=== PATIENT | male | born 1955 | race Caucasian/White ===

== ENCOUNTER 2017-08-04 10:27 | Inpatient (IN) | payer OTHER ==
[~2017-08-04] VITALS: Ht 177.8 cm; Wt 68.9 kg
[2017-08-04 11:54] LABS: ABSOLUTE BASOPHIL COUNT 0 /CUMM (0.0-0.2); ABSOLUTE EOSINOPHIL COUNT 0.1 /CUMM (0.0-0.7); ABSOLUTE GRANULOCYTE CT 5.1 /CUMM (1.4-6.5); ABSOLUTE MONOCYTE COUNT 0.7 /CUMM (0.10-0.60); BASOPHIL % 0.4 % (0.0-2.0); EOSINOPHIL % 0.7 % (0-5); GRANULOCYTE % 74.9 % (42.2-75.2); HEMATOCRIT 42.2 % (42-52); MEAN CORPUSCULAR HGB 29.4 PG (27.0-31.0); MEAN CORPUSCULAR VOLUME 89.2 FL (80.0-94.0); MEAN PLATELET VOLUME 8.6 FL (7.4-10.4); PLATELET COUNT 367 /CUMM (130-400); RBC DISTRIBUTION WIDTH 13.8 % (11.5-14.5); RED BLOOD CELL CT 4.73 /CUMM (4.70-6.10); WHITE BLOOD CELL COUNT 6.9 /CUMM (4.8-10.8)
[2017-08-04] MEDS ORDERED: LEVOTHYROXINE75 MCG PO (12:06)
[2017-08-04] MEDS ORDERED: LISINOPRIL20 M1 PO (12:06)
[2017-08-04] MEDS ORDERED: PRAVASTATIN SOD40 M2 PO (12:06)
[2017-08-04] MEDS ORDERED: ASPIRIN81 M4 PO (12:07)
--- NOTE | 2017-08-04 12:16 | ED GI/GU/ABDOMINAL COMPLAINT ---
History of Present Illness General Chief Complaint: Abdominal Pain/Flank Pain Stated Complaint: ABD PAIN Source: patient Exam Limitations: no limitations Vital Signs & Intake/Output Vital Signs & Intake/Output Vital Signs Date Time Temp Pulse Resp B/P B/P Pulse O2 O2 Flow FiO2 Mean Ox Delivery Rate 08/04 1431 99.1 72 20 119/60 97 Room Air 08/04 1329 99.0 76 20 125/86 99 Room Air 08/04 1054 96.0 94 18 118/79 96 Room Air Room Air Allergies Coded Allergies: No Known Allergies (08/04/17) Reconcile Medications Aspirin (Aspirin*) 81 MG TAB.CHEW 1 TAB PO DAILY HEART HEALTH (Reported) Levothyroxine Sodium 75 MCG TABLET 1 TAB PO DAILY AC THYROID (Reported) Lisinopril 20 MG TABLET 1 TAB PO DAILY HEART (Reported) Pravastatin Sodium 40 MG TABLET 1 TAB PO DAILY CHOLESTEROL (Reported) Triage Note: PT TO ED WITH LOW ABD PAIN, PT HAD RECENT JAW SURGERY FROM IMPACTED WISDOM TOOTH THAT WAS ABCESSED, WAS ON LIQUID DIET FOR 2 WEEKS, TAKING SOFT DIET FOR THE LAST 2-3 DAYS. PT DENIES DIARRHEA OR URINARY DIFFICULTIES "SEEMS TO GET WORSE WHEN I EAT". LAST NORMAL BM YESTERDAY. Triage Nurses Notes Reviewed? yes Onset: Gradual Duration: day(s): (4) Timing: recent history Quality/Severity: cramping, sharpness Location: left upper quadrant, right lower quadrant, suprapubic Radiation: no radiation Activities at Onset: none Prior Abdominal Problems: similar symptoms Past Sexual History: Unobtainable at this time Sexually Active: No HPI: Patient is a 61-year-old male with recent dental surgery done approximately 5 weeks ago presenting to the emergency department to complaint of lower abdominal pain has been worsening since this morning. Last bowel movement was yesterday and soft. He's been on a soft diet for the past several days secondary to his recent jaw surgery. Tactile fevers and chills. Denies any urinary frequency urgency or dysuria. No blood in the stool. Positive nausea but no vomiting. Unable to eat or drink anything. No history of similar symptoms. Remote history of bilateral inguinal hernia repair. No sick contacts or recent travel. Patient reports that he was on 2 courses of amoxicillin for the jaw surgery within the past 5 weeks. (Cristiano JAUREGUI,Bibiana) Past History Travel History Traveled to [place] past 21 day No Medical History Any Pertinent Medical History? 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 No (Bibiana Jiménez) Review of Systems Review of Systems Constitutional: Reports: see HPI, fever. Comments Review of systems: See HPI, All other systems negative. Constitutional, no weight loss HEENT: No visual changes no sore throat no congestion Cardiovascular: No chest pain ,palpitation , orthopnea or ankle swelling Skin, no jaundice no rashes Respiratory: No dyspnea cough sputum or hemoptysis GI: no vomiting : No dysuria No hematuria Muscle skeletal: no back pain, no neck pain, Neurologic: No numbness no confusion NO HEADACHES Psych: No stress anxiety or depression,. Heme/endocrine: No bruising no bleeding no polyuria or polydipsia Immunology: No splenectomy or history of AIDS (Bibiana Jiménez) Physical Exam Physical Exam General Appearance: well developed/nourished, no apparent distress, alert, awake , comfortable Gastrointestinal: tenderness Comments: Well-developed well-nourished person in mild distress HEENT: Pupils equally round and reactive to light and accommodation. Nose is atraumatic. Pharynx normal. No swelling or edema. Moist oral mucosa. Dry lips. Neck: Supple, no lymphadenopathy Back: Nontender, no CVA tenderness. Cardiovascular: Regular rate and rhythms Respiratory: No respiratory distress.breath sounds clear to auscultation bilaterally Abdomen: Mildly distended, diffusely tender with rebound and guarding. no appreciable organomegaly. Slightly hypoactive bowel sounds. No ascites Extremity: No edema Neuro: Alert oriented x3 Skin: No appreciable rash on exposed skin, skin is warm and dry. Psych: Mood and affect is normal, memory and judgment is normal. Core Measures ACS in differential dx? No Sepsis Present: No Sepsis Focused Exam Completed? No (Bibiana Jiménez) Progress Differential Diagnosis: appendicitis, bowel obstruction, colon cancer, diverticulitis, gastritis, SBO, PERFORATED VISCUS, INTUSSUSCEPTION, INTERNAL HERNIA. Plan of Care: Orders Procedure Date/time Status Admit to inpatient 08/04 1837 Active Add-on Test (ER Only) 08/04 1409 Active Add-on Test (ER Only) 08/04 1349 Active PARTIAL THROMBOPLASTIN TIME 08/04 1140 Complete PROTHROMBIN TIME 08/04 1140 Complete LACTIC ACID 08/04 1140 Complete URINALYSIS 08/04 1114 Complete LIPASE 08/04 1114 Complete COMPREHENSIVE METABOLIC PANEL 08/04 1114 Complete CBC WITHOUT DIFFERENTIAL 08/04 1114 Complete Current Medications Sig/Augustine Start time Last Medication Dose Stop Time Status Admin Morphine Sulfate 6 MG ONCE ONE 08/04 1844 UNVr (Morphine) 08/04 184 Laboratory Tests 08/04/17 1316: Urine Color YEL, Urine Clarity CLEAR, Urine pH 7.0, Ur Specific [place] <= 1.005 , Urine Protein NEG, Urine Ketones 40 H, Urine Nitrite NEG, Urine Bilirubin NEG @ICTO, Urine Urobilinogen 1.0, Ur Leukocyte Esterase NEG, Ur Microscopic EXAM NOT REQUIRED, Urine Hemoglobin NEG, Urine Glucose NEG 08/04/17 1140: Anion Gap 14, Estimated GFR > 60, BUN/Creatinine Ratio 21.7, Glucose 99, Lactic Acid 0.8, Calcium 8.9, Total Bilirubin 0.9, AST 14 L, ALT 22, Alkaline Phosphatase 75, Total Protein 6.1 L, Albumin 3.7, Globulin 2.4, Albumin/ Globulin Ratio 1.5, Lipase 12 L, PT 11.3, INR 1.04, APTT 32, CBC w Diff NO MAN DIFF REQ, RBC 4.73, MCV 89.2, MCH 29.4, MCHC 33.0, RDW 13.8, MPV 8.6, Gran % 74.9, Lymphocytes % 14.1 L, Monocytes % 9.9 H, Eosinophils % 0.7, Basophils % 0.4, Absolute Granulocytes 5.1, Absolute Lymphocytes 1.0 L, Absolute Monocytes 0.7 H, Absolute Eosinophils 0.1, Absolute Basophils 0 08/04/2017 5:16:36 PM awaiting evaluation from Dr. Penaloza as patient been seen by surgical physician addictions counselor assistant as well. Patient medicated with IV Tylenol this time. Resting comfortably. 08/04/2017 6:13:[address] Penaloza, recommending patient be admitted under his service, for admission for bowel rest, IV hydration, GI consultation, potential endoscopy versus colonoscopy. If symptoms worsen patient may need to go to the operating room for evaluation. Discussed with Dr. Salinas and he agrees to plan. Diagnostic Imaging: Viewed by Me: CT Scan. Discussed w/RAD: CT Scan. Radiology Impression: PATIENT: KAILASH LÓPEZ PRESENT AGE : 61 PATIENT ACCOUNT NO: [id number] : 59 LOCATION: [facility] ORDERING PHYSICIAN: Bibiana JAUREGUI SERVICE DATE: 08/04/17 EXAM TYPE: CAT - CT ABD & PELVIS W IV CONTRAST EXAMINATION: CT ABDOMEN AND PELVIS WITH CONTRAST CLINICAL INFORMATION: Abdominal pain with guarding. COMPARISON: None TECHNIQUE: Multidetector volumetric imaging was performed of the abdomen and pelvis following IV administration of 95 mL of Optiray 320 intravenous contrast. Sagittal and coronal reformatted images were obtained on the technologist's workstation. DLP: 267.05 mGy-cm FINDINGS: LUNG BASES: The visualized lung bases are unremarkable. LIVER, GALLBLADDER, AND BILIARY TREE: Ascites is present with tiny amount of fluid around the liver as well as in the pelvis. There is a calcified gallstone or polyp present in the gallbladder. No bile duct dilatation is seen. There is a 1.6 cm mass in the right lobe of the liver adjacent to the gallbladder. Appearances are nonspecific and this could even be a hemangioma. The liver is normal in size, shape, and attenuation. No other focal hepatic lesion or biliary ductal dilatation is present. PANCREAS: Unremarkable. SPLEEN: Unremarkable. ADRENAL GLANDS: Unremarkable. KIDNEYS AND URETERS: The kidneys are normal in size, shape, and attenuation. No hydronephrosis, hydroureter, or calculi seen. No perinephric stranding. BLADDER: Unremarkable. GASTROINTESTINAL TRACT: Extensive diverticular changes are present in the colon especially the sigmoid but there is no convincing evidence of diverticulitis. The appendix is normal. The small bowel is grossly abnormal with dilatation and marked thickening of a loop seen in the right abdomen near the terminal ileum. Proximal jejunal loops are decompressed. Possibilities would include an internal hernia as well as ischemia. No free air is seen. Surgical exploration is probably warranted. ABDOMINAL WALL: No significant hernia is appreciated. LYMPH NODES: Normal. VASCULAR: Atherosclerotic changes are present in the aorta. The SMA, celiac and DESTINY appear to be patent without evidence of embolic disease. The portal venous system is patent. PELVIC VISCERA: Unremarkable. OSSEOUS STRUCTURES : Unremarkable. IMPRESSION: Grossly abnormal study with small bowel dilatation with 1 loop that appears thick-walled and possibly ischemic. The proximal jejunal loops are completely nondilated. Closed-loop type obstruction or ischemia are possibilities. Surgical exploration is probably warranted. There is associated ascites but no free air. The diverticular changes are probably incidental as is the 1.6 cm liver mass and the gallstone or calcified polyp. The liver mass can be further evaluated with MRI at some future point. This critical result was discussed with SHANIA Menon at 1:45 PM on the day the exam and it was ascertained that the content and urgency of the report was understood at the time of direct communication. DICTATED BY: Russ Cain MD DATE/TIME DICTATED: 08/04/171313 DIGITAL SERVICE ENGINEER:MARINE DATE/TIME TRANSCRIBED:08/04/171313 CONFIDENTIAL, DO NOT COPY WITHOUT APPROPRIATE AUTHORIZATION. <Electronically signed in Other Vendor System> SIGNED BY: Russ Cain MD 08/04/17 1406 Initial ED EKG: none (Bibiana Jiménez) Departure Departure Time of Disposition: 1808 Disposition: STILL A PATIENT Condition: Stable Clinical Impression Primary Impression: Small bowel obstruction Secondary Impressions: Abdominal pain Qualifiers: Abdominal location: unspecified location Qualified Code: R10.9 - Unspecified abdominal pain Referrals: John Golden MD (PCP/Family) Departure Forms: Customer Survey General Discharge Information Admission Note Spoke With: Tremaine RIVAS,Tray Soto Documentation of Exam: Documentation of any treatments & extenuating circumstances including Concerns Regarding Discharge (functional status, medication knowledge or non-compliance, living conditions, etc.) that warrant an admission rather than observation: Patient requiring IV hydration, bowel rest, GI consultation, may require colonoscopy or endoscopy for further evaluation, if symptoms worsen or persist patient may require surgical intervention. Discharge at this time is medically harmful. (Bibiana Jiménez) PA/STATE PATROL OFFICER Co-Sign Statement Statement: ED Attending supervision documentation- [X] I saw and evaluated the patient. I have also reviewed all the pertinent lab results and diagnostic results. I agree with the findings and the plan of care as documented in the PA's/STATE PATROL OFFICER's documentation. Patient presents for evaluation of abdominal pain. Physical examination reveals mild distention but diffuse tenderness. [] I have reviewed the ED Record and agree with the PA's/STATE PATROL OFFICER's documentation. [] Additions or exceptions (if any) to the PAs/STATE PATROL OFFICER's note and plan are summarized below: [] (Rita RIVAS,Modesto Edgar) Critical Care Note Critical Care Note Critical Care Time: 30-74 min (Bibiana Jiménez)
--- NOTE | 2017-08-04 14:06 | CT SCAN REPORT ---
EXAMINATION: CT ABDOMEN AND PELVIS WITH CONTRAST CLINICAL INFORMATION: Abdominal pain with guarding. COMPARISON: None TECHNIQUE: Multidetector volumetric imaging was performed of the abdomen and pelvis following IV administration of 95 mL of Optiray 320 intravenous contrast. Sagittal and coronal reformatted images were obtained on the technologist's workstation. DLP: 267.05 mGy-cm FINDINGS: LUNG BASES: The visualized lung bases are unremarkable. LIVER, GALLBLADDER, AND BILIARY TREE: Ascites is present with tiny amount of fluid around the liver as well as in the pelvis. There is a calcified gallstone or polyp present in the gallbladder. No bile duct dilatation is seen. There is a 1.6 cm mass in the right lobe of the liver adjacent to the gallbladder. Appearances are nonspecific and this could even be a hemangioma. The liver is normal in size, shape, and attenuation. No other focal hepatic lesion or biliary ductal dilatation is present. PANCREAS: Unremarkable. SPLEEN: Unremarkable. ADRENAL GLANDS: Unremarkable. KIDNEYS AND URETERS: The kidneys are normal in size, shape, and attenuation. No hydronephrosis, hydroureter, or calculi seen. No perinephric stranding. BLADDER: Unremarkable. GASTROINTESTINAL TRACT: Extensive diverticular changes are present in the colon especially the sigmoid but there is no convincing evidence of diverticulitis. The appendix is normal. The small bowel is grossly abnormal with dilatation and marked thickening of a loop seen in the right abdomen near the terminal ileum. Proximal jejunal loops are decompressed. Possibilities would include an internal hernia as well as ischemia. No free air is seen. Surgical exploration is probably warranted. ABDOMINAL WALL: No significant hernia is appreciated. LYMPH NODES: Normal. VASCULAR: Atherosclerotic changes are present in the aorta. The SMA, celiac and DESTINY appear to be patent without evidence of embolic disease. The portal venous system is patent. PELVIC VISCERA: Unremarkable. OSSEOUS STRUCTURES: Unremarkable. IMPRESSION: Grossly abnormal study with small bowel dilatation with 1 loop that appears thick-walled and possibly ischemic. The proximal jejunal loops are completely nondilated. Closed-loop type obstruction or ischemia are possibilities. Surgical exploration is probably warranted. There is associated ascites but no free air. The diverticular changes are probably incidental as is the 1.6 cm liver mass and the gallstone or calcified polyp. The liver mass can be further evaluated with MRI at some future point. This critical result was discussed with SHANIA Menon at 1:45 PM on the day the exam and it was ascertained that the content and urgency of the report was understood at the time of direct communication.
[2017-08-04 15:17] LABS: PT 11.3 SEC (9.4-12.5); PTT 32 SEC (25-37)
--- NOTE | 2017-08-04 18:25 | History & Physical Pre-Op ---
General Information and HPI MD Statement: I have seen and personally examined KAILASH LÓPEZ and documented this H&P. The patient is a 61 year old M who presented with a patient stated chief complaint of [abdominal pain]. History of Present Illness: This is a 61-year-old male who relates a 3 week history of progressive abdominal pain. It started approximately 3 weeks ago and was associated with crampy bilateral and periumbilical abdominal pain. He attributed the onset of his symptoms to the onset of oral antibiotics for oral surgery. His symptoms resolved spontaneously. Over the past 3 weeks he has been on a soft diet due to his mouth surgery. Yesterday the pain became recurrent associated with distention and nausea but no vomiting. His last bowel movement was yesterday. He passed some gas today but nothing in the past few hours. He describes bilateral waxing and waning pain and gurgling sensation in his abdomen. No prior episodes of pain. No chronic irregularity of his bowels. No family history of inflammatory bowel disease. Allergies/Medications Allergies: Coded Allergies: No Known Allergies (08/04/17) Home Med list Aspirin (Aspirin*) 81 MG TAB.CHEW 1 TAB PO DAILY HEART HEALTH (Reported) Levothyroxine Sodium 75 MCG TABLET 1 TAB PO DAILY AC THYROID (Reported) Lisinopril 20 MG TABLET 1 TAB PO DAILY HEART (Reported) Pravastatin Sodium 40 MG TABLET 1 TAB PO DAILY CHOLESTEROL (Reported) Past History Medical History Neurological: NONE EENT: NONE Cardiovascular: hypertension, hyperlipidemia Respiratory: NONE Gastrointestinal: NONE Hepatic: NONE Renal: NONE Musculoskeletal: NONE Psychiatric: NONE Endocrine: hypothyroidism Blood Disorders: NONE Cancer(s): NONE 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 Abdominal pain per HPI. No dysuria or musculoskeletal complaints. Remainder 12 points negative Exam & Diagnostic Data Last 24 Hrs of Vital Signs/I&O Vital Signs Date Time Temp Pulse Resp B/P B/P Pulse O2 O2 Flow FiO2 Mean Ox Delivery Rate 08/04 1431 99.1 72 20 119/60 97 Room Air 08/04 1329 99.0 76 20 125/86 99 Room Air 08/04 1054 96.0 94 18 118/79 96 Room Air Room Air Intake & Output 08/04 1600 08/04 0800 08/04 0000 Intake Total Output Total Balance Patient 155 lb Weight Weight Reported by Patient Measurement Method Physical Exam: Gen.: He looks his stated age of average body habitus and no distress. HEENT: Anicteric PERRL EOMI Lungs: Clear bilaterally Heart: Regular rate rhythm Abdomen: Soft mildly distended and tympanitic. There is diffuse tenderness without guarding. No hernias no mass Extremities: No cyanosis clubbing or edema Last 24 Hrs of Labs/Eric: Laboratory Tests 08/04/17 1316: Urine Color YEL, Urine Clarity CLEAR, Urine pH 7.0, Ur Specific [place] <= 1.005 , Urine Protein NEG, Urine Ketones 40 H, Urine Nitrite NEG, Urine Bilirubin NEG @ICTO, Urine Urobilinogen 1.0, Ur Leukocyte Esterase NEG, Ur Microscopic EXAM NOT REQUIRED, Urine Hemoglobin NEG, Urine Glucose NEG 08/04/17 1140: Anion Gap 14, Estimated GFR > 60, BUN/Creatinine Ratio 21.7, Glucose 99, Lactic Acid 0.8, Calcium 8.9, Total Bilirubin 0.9, AST 14 L, ALT 22, Alkaline Phosphatase 75, Total Protein 6.1 L, Albumin 3.7, Globulin 2.4, Albumin/ Globulin Ratio 1.5, Lipase 12 L, PT 11.3, INR 1.04, APTT 32, CBC w Diff NO MAN DIFF REQ, RBC 4.73, MCV 89.2, MCH 29.4, MCHC 33.0, RDW 13.8, MPV 8.6, Gran % 74.9, Lymphocytes % 14.1 L, Monocytes % 9.9 H, Eosinophils % 0.7, Basophils % 0.4, Absolute Granulocytes 5.1, Absolute Lymphocytes 1.0 L, Absolute Monocytes 0.7 H, Absolute Eosinophils 0.1, Absolute Basophils 0 Diagnostic Data Other Results CT scan of the abdomen and pelvis with IV contrast was personally reviewed. Findings show dilated and thickened ileum filled with gas and stool. The dilatation extends to the ileocecal valve. The appendix is noted in the right lower quadrant without inflammatory changes. There is stool and small gas throughout the colon. There is right lower quadrant and right upper quadrant ascites. The bowel appears to be perfused by IV contrast. There is no evidence of "pinching" to suggest internal hernia or closed loop obstruction Assessment/Plan Assessment/Plan: Is a 61-year-old male with progressive abdominal pain and distention. Unclear as to the etiology of his symptoms. There is markedly dilated and thickened terminal ileum. Differential diagnosis includes enteritis, inflammatory bowel disease, ileal colonic obstruction due to neoplasm. There is no leukocytosis or acidosis to suggest an ischemic loop of bowel that would require emergency intervention. For now recommend bowel rest and IV fluid resuscitation and observation off antibiotics. GI consultation will be obtained for second opinion. Ideally colonoscopy with endoscopic exploration of his terminal ileum would be useful. However without a bowel prep it would unlikely be successful. We'll plan surgical intervention pending his course. He'll be admitted without As Ranked By This Provider Problem List: 1. Small bowel obstruction 2. Abdominal pain Copies To: Chantel RIVAS,John Castellon
[2017-08-04 22:07] VITALS: BP 130/80
[2017-08-05] VITALS: BP 128/66
[2017-08-05 06:33] VITALS: BP 128/66
--- NOTE | 2017-08-05 07:53 | PN- General Surgery ---
See Addendum Subjective Subjective: No events overnight. Patient states to be feeling minimally improved this am. Still complaining of mostly lower abdominal pain but less intense this am. Denies any current nausea, no emesis overnight. Denies any fevers, chills, chest pain, or SOB. Voiding freely. Denies passing flatus. Ambulating to the bathroom. Objective Vital Signs and I&Os Vital Signs Date Time Temp Pulse Resp B/P B/P Pulse O2 O2 Flow FiO2 Mean Ox Delivery Rate 08/05 0633 98.1 48 20 128/66 96 Room Air 08/05 0000 98.1 58 20 128/66 96 Room Air 08/04 2207 98.1 69 18 130/80 98 Room Air 08/04 2130 98.9 74 14 118/69 99 Room Air 08/04 1955 99.0 72 18 122/65 98 Room Air 08/04 1431 99.1 72 20 119/60 97 Room Air 08/04 1329 99.0 76 20 125/86 99 Room Air 08/04 1054 96.0 94 18 118/79 96 Room Air Room Air Intake & Output 08/05 0800 08/05 0000 08/04 1600 08/04 0800 08/04 0000 08/03 1600 Intake Total 600 Output Total Balance 600 Intake, IV 600 Patient 152 lb 155 lb Weight Weight Bed scale Reported by Patient Measurement Method Physical Exam: Afebrile, VSS. Cardiac: RRR Pulmonary: CTAB Abdominal: Minimal BS, softly distended, mild diffuse tenderness to palpation. No rebound or guarding. Non peritoneal. No LE edema. Assessment/Plan Assessment/Plan 61 y/o male w/ PSHx of bilateral inguinal hernia repairs (L laparoscopic; R open ) admitted with SBO. Currently stable. No bowel function. - Continue NPO/IVF - Abdominal x-ray this am - Encourage OOB/ambulation - Pain control and antiemetics prn - GI to see - follow up recommendations - DVT ppx - HSQ - Further management pending AXR - will d/w Dr. Penaloza Core Measures Venous Thromboembolism VTE Risk Factors Age>40 No Mechanical VTE Prophylaxis d/t N/A MechProphylax Ordered No VTE Pharm Prophylaxis d/t NA PharmProphylax ordered
--- NOTE | 2017-08-05 12:18 | RADIOLOGY REPORT ---
EXAMINATION: XR ABDOMEN CLINICAL INDICATION: Small bowel obstruction and abdominal pain. COMPARISON: CT images of the abdomen from 08/04/2017. TECHNIQUE: AP view of the abdomen. FINDINGS: Lung bases are unremarkable. The gas-filled small bowel remains diffusely dilated and measures up to approximately 4 cm maximum diameter, similar compared to 08/04/2017. There is a paucity of gas within the colon and rectum. No pneumatosis intestinalis, pneumoperitoneum or other significant interval change. IMPRESSION: Findings are consistent with a persistent moderate to high-grade distal small bowel obstruction.
[2017-08-05 14:39] VITALS: BP 112/68
--- NOTE | 2017-08-05 21:45 | Operative Report ---
Operative/Inv Procedure Report Surgery Date: 08/05/17 Name of Procedure: Exploratory laparotomy with right hemicolectomy Needle biopsy the liver Pre-Operative Diagnosis: Intestinal obstruction Post-Operative Diagnosis: Obstructing colon cancer Estimated Blood Loss: less than 50ml Surgeon/Hose Suspender Cutter: Tremaine RIVAS,Tray Soto/Bello JAUREGUI Anesthesia: general endotracheal tube Specimens: Right colon Core biopsy needle liver Operative Indication: 61-year-old male presents with progressive obstructive symptoms and findings on CT x-ray concerning for distal small bowel obstruction. he presents for exploration Operative/Procedure Note Note: After consent is brought the operative laid supine. Gen. anesthesia was obtained and his abdomen was prepped and draped. Skin in the midline was incised sharply we came through subcutaneous tissues with cautery. The fascia and incised the linea alba with cautery and the peritoneum entered sharply. The abdomen was explored. There was 1.5 L of clear ascites. There are multiple loops of small bowel dilated from the proximal jejunum to the terminal ileum. In the cecum there was dimpling an obstructive mass. Distally the colon was decompressed. On CT scan there are 2 areas of hypodensity in the liver. These corresponded on palpation to confirm irregularly-shaped mass is a proximally 2 cm in greatest dimension. We began by taking down the white line of Toldt the right colon. This was achieved with cautery. Dissection was difficult due to inflammatory process in the region. The duodenum was identified and reflected posteriorly. The ileocolic pedicle was circumvention dissected and then ligated high at its origin. It was suture ligated with 0 silk. Then chose our sites of transection. The small bowel was fairly edematous but the area just proximal to about 30 cm the TI was little more supple. We divided the small bowel with TAY stapler. The mesentery was taken with the LigaSure device. We chose a line of transection at the proximal transverse colon. The colon was divided with a TAY stapler and the specimen passed off the field. This point we had a better window to perform core biopsy of the liver lesion. 3 cores were taken. Hemostasis achieved with cautery. I elected to perform anastomosis. The bowel was moderately edematous but viable. We lined up the intestine to the colon with 3-0 silk sutures. Enterotomies were created in a [id number] anastomosis created through the tinea. Common enterotomy was then closed with a reload of the stapler. Due to the edema of the bowel elected to reinforce the closure circumferentially with interrupted 3-0 silk sutures in a Lembert fashion. Mesenteric defect was closed with a running 3-0 Vicryl suture.. No cavity was irrigated with saline. Fascia was closed with 0 Maxon suture. Skin was closed with be. Sponge and needle counts are correct. Findings: Obstructing cecal mass Liver metastases pathology pending CC: Chantel RIVAS,John Castellon
[2017-08-06] VITALS (11 sets, daily range): BP systolic 108–122; BP diastolic 54–79
--- NOTE | 2017-08-06 05:02 | PN- General Surgery ---
Subjective Subjective: No events overnight. Patient reports he feels as though his abdomen is less distended this morning. Though reports moderate amount of abdominal pain, the SENIOR RELATIONSHIP MANAGER is working well for him. Also, reports moderate pain 2/2 to NG tube. Denies any flatus or BM yet. Calvo in place and making yellow tinged urine. Denies f/c, cp, sob, n/v. As not ambulated yet Objective Vital Signs and I&Os Vital Signs Date Time Temp Pulse Resp B/P B/P Pulse O2 O2 Flow FiO2 Mean Ox Delivery Rate 08/06 0400 98.5 78 18 112/64 08/06 0400 98.5 78 18 11264 97 08/06 0000 Nasal 2.0L Cannula 08/05 1439 98.3 67 18 112/68 96 Room Air 08/05 0633 98.1 48 20 128/66 96 Room Air Intake & Output 08/06 0800 08/06 0000 08/05 1600 08/05 0800 08/05 0000 08/04 1600 Intake Total 600 600 Output Total Balance 600 600 Intake, IV 600 600 Intake, Oral 0 Number 0 Bowel Movements Patient 152 lb 155 lb Weight Weight Bed scale Reported by Patient Measurement Method Physical Exam: General: laying supine in bed, answerig questions, NAD Afebrile, VSS. Cardiac: RRR Pulmonary: CTAB Abdominal: midline laparotomy dressing is c/d/i, moderate tenderness to palpation, -BS, distention improve, no guarding No LE edema Current Medications: Current Medications Sig/Augustine Start time Last Medication Dose Route Stop Time Status Admin Acetaminophen 1,000 MG Q6H PRN 08/04 1944 AC 08/05 N/A 1 UNIT IV 2335 Aspirin 81 MG DAILY 08/05 0900 AC PO Chlorhexidine 15 ML Q6 08/04 2359 08/05 Gluconate PO 2348 Dexamethasone 4 MG .STK-MED ONE 08/05 1906 DC IM 08/05 1907 Dextrose/Sodium 1,000 ML Q10H 08/05 1430 DC 08/05 Chloride IV 1500 Dextrose/Sodium 1,000 ML Q13H 08/04 1945 DC 08/04 Chloride IV 2014 Fentanyl Citrate 250 MCG .STK-MED ONE 08/05 1905 DC IM 08/05 190 Heparin Sodium 5,000 UNIT Q8 08/04 2200 AC 08/05 (Porcine) SC 2248 Hydromorphone HCl 50 MG Q24H PRN 08/05 2300 AC 08/06 Sodium Chloride 45 ML IV 0148 Ketorolac 30 MG .STK-MED ONE 08/05 1906 DC Tromethamine IM 08/05 190 Lactated Ringer's 1,000 ML Q8H 08/05 2200 AC 08/06 IV 0419 Levothyroxine Sodium 0.075 MG DAILY AC 08/05 0700 AC 08/05 PO 0514 Lisinopril 20 MG DAILY 08/05 0900 AC 08/05 PO 0818 Lisinopril 20 MG DAILY 08/05 0900 CAN PO Midazolam HCl 2 MG .STK-MED ONE 08/05 1906 DC IM 08/05 1907 Morphine Sulfate 4 MG Q2-3 HRS NEEDED.. 08/05 1530 DC 08/05 IV 1808 Morphine Sulfate 2 MG Q2-3 HRS NEEDED.. 08/05 1515 CAN IV Morphine Sulfate 2 MG Q3P PRN 08/04 1945 DC 08/05 IV 1353 Ondansetron HCl 4 MG .STK-MED ONE 08/05 190 DC IM 08/05 1907 Ondansetron HCl 4 MG Q6P PRN 08/04 1945 AC IV Oxycodone HCl 5 MG .STK-MED ONE 08/05 1802 DC PO 08/05 1803 Patient Medication 1 ED ONE ONE 08/05 0915 DC Teaching ED 08/05 0916 Results Last 48 Hours of Labs: Laboratory Tests 08/05 08/05 08/05 08/05 1829 1829 1828 0650 Chemistry Sodium (137 - 145 mmol/L) 136 L Potassium (3.5 - 5.1 mmol/L) 4.0 Chloride (98 - 107 mmol/L) 101 Carbon Dioxide (22 - 30 mmol/L) 27 Anion Gap (5 - 16) 8 BUN (9 - 20 mg/dL) 9 Creatinine (0.7 - 1.2 mg/dL) 0.6 L Estimated GFR (>60 ml/min) > 60 BUN/Creatinine Ratio (7 - 25 %) 15.0 Albumin Cancelled Vit D 1,25-Dihyd Total Cancelled 1,25 Dihydroxy Vit D2 Cancelled 1,25 Dihydroxy Vit D3 Cancelled PTH Intact Cancelled 08/04 08/04 1316 1140 Chemistry Sodium (137 - 145 mmol/L) 137 Potassium (3.5 - 5.1 mmol/L) 4.5 Chloride (98 - 107 mmol/L) 97 L Carbon Dioxide (22 - 30 mmol/L) 26 Anion Gap (5 - 16) 14 BUN (9 - 20 mg/dL) 13 Creatinine (0.7 - 1.2 mg/dL) 0.6 L Estimated GFR (>60 ml/min) > 60 BUN/Creatinine Ratio (7 - 25 %) 21.7 Glucose (65 - 99 mg/dL) 99 Lactic Acid (0.7 - 2.1 mmol/L) 0.8 Calcium (8.4 - 10.2 mg/dL) 8.9 Total Bilirubin (0.2 - 1.3 mg/dL) 0.9 AST (17 - 59 U/L) 14 L ALT (21 - 72 U/L) 22 Alkaline Phosphatase (< 127 U/L) 75 Total Protein (6.3 - 8.2 g/dL) 6.1 L Albumin (3.5 - 5.0 g/dL) 3.7 Globulin (1.9 - 4.2 gm/dL) 2.4 Albumin/Globulin Ratio (1.1 - 2.2 %) 1.5 Lipase (23 - 300 U/L) 12 L Coagulation PT (9.4 - 12.5 SEC) 11.3 INR (0.90 - 1.17) 1.04 APTT (25 - 37 SEC) 32 Hematology CBC w Diff NO MAN DIFF REQ WBC (4.8 - 10.8 /CUMM) 6.9 RBC (4.70 - 6.10 /CUMM) 4.73 Hgb (14.0 - 18.0 G/DL) 13.9 L Hct (42 - 52 %) 42.2 MCV (80.0 - 94.0 FL) 89.2 MCH (27.0 - 31.0 PG) 29.4 MCHC (33.0 - 37.0 G/DL) 33.0 RDW (11.5 - 14.5 %) 13.8 Plt Count (130 - 400 /CUMM) 367 MPV (7.4 - 10.4 FL) 8.6 Gran % (42.2 - 75.2 %) 74.9 Lymphocytes % (20.5 - 51.1 %) 14.1 L Monocytes % (1.7 - 9.3 %) 9.9 H Eosinophils % (0 - 5 %) 0.7 Basophils % (0.0 - 2.0 %) 0.4 Absolute Granulocytes (1.4 - 6.5 /CUMM) 5.1 Absolute Lymphocytes (1.2 - 3.4 /CUMM) 1.0 L Absolute Monocytes (0.10 - 0.60 /CUMM) 0.7 H Absolute Eosinophils (0.0 - 0.7 /CUMM) 0.1 Absolute Basophils (0.0 - 0.2 /CUMM) 0 Urines Urine Color (YEL,AMB,STR) YEL Urine Clarity (CLEAR) CLEAR Urine pH (5.0 - 8.0) 7.0 Ur Specific [place] (1.001 - 1.035) <= 1.005 Urine Protein (NEG,<30 MG/DL) NEG Urine Ketones (NEG) 40 H Urine Nitrite (NEG) NEG Urine Bilirubin (NEG) NEG@ICTO Urine Urobilinogen (0.1 - 1.0 EU/dl) 1.0 Ur Leukocyte Esterase (NEG) NEG Ur Microscopic EXAM NOT REQUIRED Urine Hemoglobin (NEG) NEG Urine Glucose (N MG/DL) NEG Assessment/Plan Assessment/Plan 61 y/o male w/ PSHx of bilateral inguinal hernia repairs (L laparoscopic; R open ) admitted with SBO, now POD#1 s/p exploratory laparotomy right hemicolectomy and biospy of liver lesions for obstruction cecal mass. Currently stable. No bowel function. - Continue NPO/IVF - NGT - SENIOR RELATIONSHIP MANAGER for pain - Calvo likely dc today - Encourage OOB/ambulation - antiemetics prn - DVT ppx - HSQ - will d/w Dr. Penaloza Core Measures Venous Thromboembolism VTE Risk Factors Age>40 No Mechanical VTE Prophylaxis d/t N/A MechProphylax Ordered No VTE Pharm Prophylaxis d/t NA PharmProphylax ordered
[2017-08-06 10:42] LABS: ABSOLUTE BASOPHIL COUNT 0 /CUMM (0.0-0.2); ABSOLUTE EOSINOPHIL COUNT 0 /CUMM (0.0-0.7); ABSOLUTE GRANULOCYTE CT 5.1 /CUMM (1.4-6.5); ABSOLUTE LYMPH COUNT 0.5 /CUMM (1.2-3.4); ABSOLUTE MONOCYTE COUNT 0.6 /CUMM (0.10-0.60); BASOPHIL % 0 % (0.0-2.0); EOSINOPHIL % 0 % (0-5); GRANULOCYTE % 82.7 % (42.2-75.2); MEAN CORPUSCULAR HGB 29.9 PG (27.0-31.0); MEAN CORPUSCULAR HGB CONC 33.3 G/DL (33.0-37.0); MEAN CORPUSCULAR VOLUME 89.8 FL (80.0-94.0); MEAN PLATELET VOLUME 9.5 FL (7.4-10.4); PLATELET COUNT 246 /CUMM (130-400); RBC DISTRIBUTION WIDTH 13.8 % (11.5-14.5); RED BLOOD CELL CT 4.14 /CUMM (4.70-6.10); WHITE BLOOD CELL COUNT 6.1 /CUMM (4.8-10.8)
[2017-08-06 11:28] LABS: HEMATOCRIT 37.2 % (42-52)
--- NOTE | 2017-08-06 11:57 | PN- General Surgery ---
See Addendum Subjective Subjective: 61-year-old male is postop day 1 right hemicolectomy for obstructing cecal mass with multiple liver metastases. He did well overnight however has abdominal bloating with mild pain. He says his abdomen has been quiet and he is not passing any gas at this time he has some nausea and no appetite. His pain is controlled on pain medication as prescribed Review of Systems: Fevers or chills no chest pain or shortness of breath abdominal pain as to be expected after procedure no passage of gas Objective Vital Signs and I&Os Vital Signs Date Time Temp Pulse Resp B/P B/P Pulse O2 O2 Flow FiO2 Mean Ox Delivery Rate 08/06 1014 97.7 69 18 108/54 97 Room Air 08/06 0850 78 116/60 08/06 0600 98.4 86 18 112/60 08/06 0600 98.4 86 18 112/60 96 08/06 0400 98.5 78 18 112/64 08/06 0400 98.5 78 18 112/64 97 08/06 0000 Nasal 2.0L Cannula 08/05 1439 98.3 67 18 112/68 96 Room Air Intake & Output 08/06 1600 08/06 0800 08/06 0000 08/05 1600 08/05 0800 08/05 0000 Intake Total 1000 600 600 Output Total 325 Balance 675 600 600 Intake, IV 1000 600 600 Intake, Oral 0 Number 0 Bowel Movements Output, 125 Gastric Drainage Output, Urine 200 Patient 152 lb 152 lb Weight Weight Bed scale Measurement Method Seen is lying in bed NG in place. Approximately 200 mL of bilious fluid today. Since clear to auscultation symmetric without rales rhonchi or wheeze Is regular rhythm without murmurs rubs gallops Abdomen is mildly distended and tender throughout surgical dressing is clean dry and intact Or no bowel sounds at this time and he is not passing gas Lateral lower extremities are free of edema and Soft Assessment/Plan Assessment/Plan assessmant and plan patient is postop day 1 out of right hemicolectomy. He is on heparin subcutaneous for DVT prophylaxis NG tube is still in place with moderate output we will continue to follow this he will remain nothing by mouth Calvo is in place for strict I and O's most likely this will come out in the morning He has labs pending for tomorrow morning Core Measures Venous Thromboembolism VTE Risk Factors Age>40 No Mechanical VTE Prophylaxis d/t N/A MechProphylax Ordered No VTE Pharm Prophylaxis d/t NA PharmProphylax ordered
[2017-08-07] VITALS (11 sets, daily range): BP systolic 112–130; BP diastolic 66–82
[2017-08-07 08:50] LABS: ABSOLUTE BASOPHIL COUNT 0 /CUMM (0.0-0.2); ABSOLUTE EOSINOPHIL COUNT 0.2 /CUMM (0.0-0.7); ABSOLUTE GRANULOCYTE CT 2.8 /CUMM (1.4-6.5); ABSOLUTE LYMPH COUNT 0.8 /CUMM (1.2-3.4); ABSOLUTE MONOCYTE COUNT 0.7 /CUMM (0.10-0.60); BASOPHIL % 0.4 % (0.0-2.0); EOSINOPHIL % 3.9 % (0-5); GRANULOCYTE % 62.2 % (42.2-75.2); HEMATOCRIT 34.8 % (42-52); MEAN CORPUSCULAR HGB 30.2 PG (27.0-31.0); MEAN CORPUSCULAR HGB CONC 33.9 G/DL (33.0-37.0); MEAN PLATELET VOLUME 9.3 FL (7.4-10.4); PLATELET COUNT 269 /CUMM (130-400); RBC DISTRIBUTION WIDTH 13.7 % (11.5-14.5); RED BLOOD CELL CT 3.91 /CUMM (4.70-6.10); WHITE BLOOD CELL COUNT 4.5 /CUMM (4.8-10.8)
--- NOTE | 2017-08-07 09:12 | PN- General Surgery ---
See Addendum Subjective Subjective: 61 y/o male POD #2 right hemicolectomy, was unable to sleep through the night due to noise and interruptions. Abdominal pain slightly better this am but still requires MEDICAL TRANSPORT SPECIALIST and does not want it D/Ezequiel yet. No passage of gas, no nausea no fevers or chills Objective Vital Signs and I&Os Vital Signs Date Time Temp Pulse Resp B/P B/P Pulse O2 O2 Flow FiO2 Mean Ox Delivery Rate 08/07 0827 79 112/68 08/07 0600 98.1 79 18 112/68 08/07 0600 98.1 79 18 112/68 93 08/07 0400 97.9 74 18 116/66 08/07 0400 97.9 74 18 116/66 96 08/07 0200 98.2 76 18 118/70 08/07 0200 98.2 76 18 118/70 95 08/07 0000 Nasal 1.0L Cannula 08/07 0000 98.9 79 18 126/68 08/07 0000 98.9 79 18 126/68 95 08/06 2200 98.2 81 16 122/79 08/06 2200 98.2 81 16 122/79 100 Room Air 08/06 2000 97.4 77 16 116/77 08/06 2000 97.4 77 16 116/73 98 Room Air 08/06 1800 98.4 78 18 120/74 97 Room Air 08/06 1600 98.2 96 18 118/70 08/06 1400 99.0 78 18 122/70 97 Room Air 08/06 1200 98.7 77 18 118/68 08/06 1014 97.7 69 18 108/54 97 Room Air 08/06 1000 97.7 69 18 108/54 Intake & Output 08/07 1600 08/07 0800 08/07 0000 08/06 1600 08/07 0700 08/06 0000 Intake Total 644 773 8453 Output Total 750 50 250 325 Balance -750 325 625 675 Intake, IV 001 706 1840 Number 0 Bowel Movements Output, 50 125 Gastric Drainage Output, Urine 750 250 200 Patient 152 lb Weight Patient lying in bad -pain controlled lungs -CTA symmetric Heart- RRR without MRG Abd - moderate distention and tenderness but improved from yesterday pos BS, no passage of gas wound CDI without drainage Admission Lab Results I reviewed the following labs: Laboratory Tests 08/07 0710 Chemistry Sodium (137 - 145 mmol/L) 135 L Potassium (3.5 - 5.1 mmol/L) 4.0 Chloride (98 - 107 mmol/L) 99 Carbon Dioxide (22 - 30 mmol/L) 28 Anion Gap (5 - 16) 8 Magnesium (1.6 - 2.3 mg/dL) 1.8 Hematology CBC w Diff NO MAN DIFF REQ WBC (4.8 - 10.8 /CUMM) 4.5 L RBC (4.70 - 6.10 /CUMM) 3.91 L Hgb (14.0 - 18.0 G/DL) 11.8 L Hct (42 - 52 %) 34.8 L MCV (80.0 - 94.0 FL) 89.0 MCH (27.0 - 31.0 PG) 30.2 MCHC (33.0 - 37.0 G/DL) 33.9 RDW (11.5 - 14.5 %) 13.7 Plt Count (130 - 400 /CUMM) 269 MPV (7.4 - 10.4 FL) 9.3 Gran % (42.2 - 75.2 %) 62.2 Lymphocytes % (20.5 - 51.1 %) 18.4 L Monocytes % (1.7 - 9.3 %) 15.1 H Eosinophils % (0 - 5 %) 3.9 Basophils % (0.0 - 2.0 %) 0.4 Absolute Granulocytes (1.4 - 6.5 /CUMM) 2.8 Absolute Lymphocytes (1.2 - 3.4 /CUMM) 0.8 L Absolute Monocytes (0.10 - 0.60 /CUMM) 0.7 H Absolute Eosinophils (0.0 - 0.7 /CUMM) 0.2 Absolute Basophils (0.0 - 0.2 /CUMM) 0 Assessment/Plan Assessment/Plan POD #2 right hemicolectomy for obstructing cecal mass decrease and change IV fluids for low sodium stable H/H Out of bed to chair and DC Calvo. Begin ambulation with assistance We'll reassess his MEDICAL TRANSPORT SPECIALIST this afternoon if feeling any improvement we will DC this Core Measures Venous Thromboembolism VTE Risk Factors Age>40 No Mechanical VTE Prophylaxis d/t N/A MechProphylax Ordered No VTE Pharm Prophylaxis d/t NA PharmProphylax ordered
[2017-08-08] VITALS (9 sets, daily range): BP systolic 110–132; BP diastolic 66–88
--- NOTE | 2017-08-08 07:45 | PN- General Surgery ---
See Addendum Subjective Subjective: No events overnight. Patient states to be feeling better this am. Abdominal pain is improved but still using REPAIRER GENERAL frequently. Admits to nausea overnight that has since resolved. Denies any emesis. Denies any fevers, chills, chest pain, or SOB. Voiding freely since Calvo removal yesterday. States he did start passing minimal flatus this am. Objective Vital Signs and I&Os Vital Signs Date Time Temp Pulse Resp B/P B/P Pulse O2 O2 Flow FiO2 Mean Ox Delivery Rate 08/08 0623 98.0 75 20 112/66 95 08/08 0600 98.0 75 20 112/66 08/08 0500 98.0 75 20 112/66 95 08/08 0200 98.5 76 20 126/82 08/08 0101 98.5 76 20 126/82 95 08/07 2208 99.0 79 128/80 97 Room Air 08/07 2200 99.0 79 20 128/80 08/07 1746 98.0 78 130/82 95 Room Air 08/07 1600 98.1 72 20 122/78 08/07 1414 98.1 72 20 122/78 94 Room Air 08/07 1200 98.0 72 16 118/76 08/07 1000 98.0 72 16 118/76 08/07 1000 98.0 72 18 118/76 95 Room Air 08/07 0827 79 112/68 Intake & Output 08/08 0800 08/08 0000 08/07 1600 08/07 0800 08/07 0000 08/06 1600 Intake Total 780 310 800 375 875 Output Total 850 7043 459 9450 50 250 Balance -70 -1390 550 -1100 325 625 Intake, IV 700 300 800 375 875 Intake, Oral 80 10 Number 0 0 Bowel Movements Output, 400 1700 350 50 Gastric Drainage Output, Urine 450 250 750 250 Physical Exam: Afebrile, VSS. Lying in bed in NAD HENT: NGT in place, 400 cc output over 8 hours Cardiac: RRR Pulmonary: CTAB Abdominal: Dressing c/d/i. + hypoactive BS, softly distended, mild diffuse tenderness to palpation. No rebound or guarding. No LE edema. Assessment/Plan Assessment/Plan A/P: 61 y/o male POD #3 s/p ex lap, right hemicolectomy for obstructing cecal mass, stable post operatively. Starting to have return of bowel function. - Continue NPO/NGT this am - Supplemental IVF - Encourage OOB/IS/ambulation - Follow up am labs - ? clamp trial later today if continues to pass flatus - Continue home medications - DVT ppx - HSQ - GI ppx - Protonix IV - will d/w Dr. Penaloza Core Measures Venous Thromboembolism VTE Risk Factors Age>40 No Mechanical VTE Prophylaxis d/t N/A MechProphylax Ordered No VTE Pharm Prophylaxis d/t NA PharmProphylax ordered
[2017-08-08 08:16] LABS: ABSOLUTE BASOPHIL COUNT 0 /CUMM (0.0-0.2); ABSOLUTE EOSINOPHIL COUNT 0.2 /CUMM (0.0-0.7); ABSOLUTE GRANULOCYTE CT 3.6 /CUMM (1.4-6.5); ABSOLUTE LYMPH COUNT 0.8 /CUMM (1.2-3.4); ABSOLUTE MONOCYTE COUNT 0.6 /CUMM (0.10-0.60); BASOPHIL % 0.4 % (0.0-2.0); GRANULOCYTE % 69.9 % (42.2-75.2); HEMATOCRIT 34.5 % (42-52); MEAN CORPUSCULAR HGB 30.4 PG (27.0-31.0); MEAN CORPUSCULAR HGB CONC 34.5 G/DL (33.0-37.0); MEAN CORPUSCULAR VOLUME 88.3 FL (80.0-94.0); MEAN PLATELET VOLUME 9.3 FL (7.4-10.4); PLATELET COUNT 284 /CUMM (130-400); RBC DISTRIBUTION WIDTH 13.3 % (11.5-14.5); WHITE BLOOD CELL COUNT 5.1 /CUMM (4.8-10.8)
[2017-08-09 02:09] VITALS: BP 104/70
[2017-08-09 05:54] VITALS: BP 110/60
--- NOTE | 2017-08-09 08:21 | PN- General Surgery ---
See Addendum Subjective Subjective: Patient reports diffuse postop pain and tightness, which is well controlled. He reports he is passing flatus and has been ambulating in the halls. Denies any nausea or vomiting. Tolerated a small amount of clears last night. Reports difficulty sleeping last night. Offers no other complaints. Objective Vital Signs and I&Os Vital Signs Date Time Temp Pulse Resp B/P B/P Pulse O2 O2 Flow FiO2 Mean Ox Delivery Rate 08/09 0554 98.2 63 20 110/60 96 Room Air 08/09 0209 98.2 61 20 104/70 96 Room Air 08/08 2200 98.4 76 18 122/68 97 Room Air 08/08 1800 98.3 70 20 132/88 98 Room Air 08/08 1453 98.5 73 18 118/72 97 08/08 1008 98.1 71 18 110/70 94 Room Air Intake & Output 08/09 1600 08/09 0800 08/09 0000 08/08 1600 08/08 0800 08/08 0000 Intake Total 800 800 810 780 310 Output Total 400 600 750 856 7647 Balance 400 200 Intake, IV 800 800 800 700 300 Intake, Oral 10 80 10 Output, 204 190 2441 Gastric Drainage Output, Urine 400 600 450 Physical Exam: Gen - awakr an alert in nad Cardiac - S1S2 noted Lungs - CTAB Abd - softly distended, midline incision closed with be healing well with no signs of infection, appropriately tender, no rebound or guarding noted. Ext - no edema or calf tenderness B/L Current Medications: Current Medications Sig/Augustine Start time Last Medication Dose Route Stop Time Status Admin Aspirin 81 MG DAILY 08/05 09 AC 08/07 PO 0827 Chlorhexidine 15 ML Q6 08/04 235 AC 08/09 Gluconate PO 0515 Heparin Sodium 5,000 UNIT Q8 08/04 2199 AC 08/09 (Porcine) SC 0514 Lactated Ringer's 1,000 ML Q10H 08/07 914 AC 08/08 IV 2353 Levothyroxine Sodium 0.075 MG DAILY AC 08/05 0700 AC 08/09 PO 0514 Lisinopril 20 MG DAILY 08/05 0900 AC 08/08 PO 0855 Melatonin 5 MG AT BEDTIME 08/07 2099 AC 08/08 PO 2100 Morphine Sulfate 2 MG Q2P PRN 08/08 0945 AC 08/09 IV 0514 Ondansetron HCl 4 MG Q6P PRN 08/04 1945 AC IV Oxycodone/ 1 TAB Q4P PRN 08/08 944 AC Acetaminophen PO Oxycodone/ 2 TAB Q4P PRN 08/08 0945 AC 08/08 Acetaminophen PO 2357 Pantoprazole Sodium 40 MG DAILY 08/07 1613 AC 08/08 IV 0855 Patient Medication 1 ED ONE ONE 08/08 1500 DC Teaching ED 08/08 1501 Results Last 48 Hours of Labs: Laboratory Tests 08/09 08/08 0709 0610 Chemistry Sodium (137 - 145 mmol/L) 137 139 Potassium (3.5 - 5.1 mmol/L) 3.6 3.6 Chloride (98 - 107 mmol/L) 102 99 Carbon Dioxide (22 - 30 mmol/L) 26 28 Anion Gap (5 - 16) 9 12 BUN (9 - 20 mg/dL) 15 17 Creatinine (0.7 - 1.2 mg/dL) 0.5 L 0.7 Estimated GFR (>60 ml/min) > 60 > 60 BUN/Creatinine Ratio (7 - 25 %) 30.0 H 24.3 Magnesium (1.6 - 2.3 mg/dL) 1.9 Hematology CBC w Diff NO MAN DIFF REQ NO MAN DIFF REQ WBC (4.8 - 10.8 /CUMM) 5.5 5.1 RBC (4.70 - 6.10 /CUMM) 3.87 L 3.90 L Hgb (14.0 - 18.0 G/DL) 11.4 L 11.9 L Hct (42 - 52 %) 34.2 L 34.5 L MCV (80.0 - 94.0 FL) 88.5 88.3 MCH (27.0 - 31.0 PG) 29.5 30.4 MCHC (33.0 - 37.0 G/DL) 33.4 34.5 RDW (11.5 - 14.5 %) 13.4 13.3 Plt Count (130 - 400 /CUMM) 292 284 MPV (7.4 - 10.4 FL) 8.8 9.3 Gran % (42.2 - 75.2 %) 65.4 69.9 Lymphocytes % (20.5 - 51.1 %) 19.9 L 14.7 L Monocytes % (1.7 - 9.3 %) 10.7 H 12.0 H Eosinophils % (0 - 5 %) 3.7 3.0 Basophils % (0.0 - 2.0 %) 0.3 0.4 Absolute Granulocytes (1.4 - 6.5 /CUMM) 3.6 3.6 Absolute Lymphocytes (1.2 - 3.4 /CUMM) 1.1 L 0.8 L Absolute Monocytes (0.10 - 0.60 /CUMM) 0.6 0.6 Absolute Eosinophils (0.0 - 0.7 /CUMM) 0.2 0.2 Absolute Basophils (0.0 - 0.2 /CUMM) 0 0 Assessment/Plan Assessment/Plan 61 y/o male POD 4 s/p ex lap, right hemicolectomy for obstructing cecal mass with return of bowel function Cont clears today, likely advance to fulls tomorrow D/c IVF Cont pain regimen Home meds on board GI/DVT ppx on board Encourage IS, ambulation\ D/w Dr. Penaloza Core Measures Venous Thromboembolism VTE Risk Factors Age>40 No Mechanical VTE Prophylaxis d/t N/A MechProphylax Ordered No VTE Pharm Prophylaxis d/t NA PharmProphylax ordered
[2017-08-09 08:25] LABS: ABSOLUTE BASOPHIL COUNT 0 /CUMM (0.0-0.2); ABSOLUTE EOSINOPHIL COUNT 0.2 /CUMM (0.0-0.7); ABSOLUTE GRANULOCYTE CT 3.6 /CUMM (1.4-6.5); ABSOLUTE LYMPH COUNT 1.1 /CUMM (1.2-3.4); ABSOLUTE MONOCYTE COUNT 0.6 /CUMM (0.10-0.60); BASOPHIL % 0.3 % (0.0-2.0); EOSINOPHIL % 3.7 % (0-5); GRANULOCYTE % 65.4 % (42.2-75.2); HEMATOCRIT 34.2 % (42-52); MEAN CORPUSCULAR HGB 29.5 PG (27.0-31.0); MEAN CORPUSCULAR HGB CONC 33.4 G/DL (33.0-37.0); MEAN CORPUSCULAR VOLUME 88.5 FL (80.0-94.0); MEAN PLATELET VOLUME 8.8 FL (7.4-10.4); PLATELET COUNT 292 /CUMM (130-400); RBC DISTRIBUTION WIDTH 13.4 % (11.5-14.5); RED BLOOD CELL CT 3.87 /CUMM (4.70-6.10); WHITE BLOOD CELL COUNT 5.5 /CUMM (4.8-10.8)
[2017-08-09 14:22] VITALS: BP 118/68
[2017-08-09 21:28] VITALS: BP 101/76
[2017-08-10 05:58] VITALS: BP 122/68
--- NOTE | 2017-08-10 07:22 | PN- General Surgery ---
Subjective Subjective: feeling good, a few loose BMs, +flatus, no belching, some abd pain at incision, oob ambulating, no n/v, kirti fulls, no cp/sob. Objective Vital Signs and I&Os Vital Signs Date Time Temp Pulse Resp B/P B/P Pulse O2 O2 Flow FiO2 Mean Ox Delivery Rate 08/10 557 98.4 67 20 122/68 97 Room Air 08/09 2128 98.2 70 18 101/76 100 08/09 1422 98.1 73 20 118/68 100 Room Air 08/09 1046 64 132/78 Intake & Output 08/10 0808/10 0000 08/09 1600 08/09 0800 08/09 0000 08/08 1600 Intake Total 945 500 800 800 810 Output Total 400 600 210 Balance 945 500 400 200 600 Intake, IV 225 800 800 800 Intake, Oral 720 500 10 Number 1 0 Bowel Movements Output, 210 Gastric Drainage Output, Urine 400 600 Physical Exam: GEN-NAD CARD-s1s2 rrr PULM- no audible wheeze ABD- soft, nd, midline be cdi no erythema, ttp at incision EXT-calves soft nt bl Assessment/Plan Assessment/Plan A- POD5 sp R cole for obstruction colon mass, with return of bowel fxn, stable. P- advance to reg diet I&Os oob, ambulate alps, hepsq prn po pain meds dc planning Core Measures Venous Thromboembolism VTE Risk Factors Age>40 No Mechanical VTE Prophylaxis d/t N/A MechProphylax Ordered No VTE Pharm Prophylaxis d/t NA PharmProphylax ordered
[2017-08-10] MEDS ORDERED: PERCOCET 5-3251 EACH PO (07:29)
--- NOTE | 2017-08-10 07:33 | Patient Discharge Instructions ---
Discharge Instructions General Discharge Information You were seen/treated for: Intestinal obstruction due to obstructing colon cancer You had these procedures: 1. Exploratory laparotomy with right hemicolectomy 2. Needle biopsy of the liver Watch for these problems: fever>101, worsening pain despite pain meds, drainage/redness from incision, absence of bowel function, inability to tolerate oral intake Call Surgeon to remove: Jaylyn (08/18) Other wound care: keep wound clean & dry. showering is ok- no tub baths/swimming (do not soak wound). Special Instructions: Call office to arrange follow up for staple removal, Dr. Penaloza would like to remove them on 08/18/17 Diet Recommended Diet: Regular Activity Activity Self Limited: Yes Additional ACTIVITY Info: activity as tolerated Acute Coronary Syndrome Inclusion Criteria At DC or during hospital stay patient has or had the following: ACS DIAGNOSIS No Discharge Core Measures Meds if any: Prescribed or Continued at Discharge Meds if any: NOT Prescribed or Continued at Discharge Congestive Heart Failure Inclusion Criteria At DC or during hospital stay patient has or had the following: CHF DIAGNOSIS No Discharge Core Measures Meds if any: Prescribed or Continued at Discharge Meds if any: NOT Prescribed or Continued at Discharge Cerebrovascular accident Inclusion Criteria At DC or during hospital stay patient has or had the following: CVA/TIA Diagnosis No Discharge Core Measures Meds if any: Prescribed or Continued at Discharge Meds if any: NOT Prescribed or Continued at Discharge Venous thromboembolism Inclusion Criteria VTE Diagnosis No VTE Type NONE VTE Confirmed by (Test) NONE Discharge Core Measures - Per Current guidelines, there needs to be overlap - treatment for the first 5 days of Warfarin therapy. - If discharged on Warfarin prior to 5 days of - overlap therapy, the patient will need to be - assessed for post discharge needs including - *Post discharge parental anticoagulation - *Warfarin and/or parental anticoagulation education - *Follow up date to check INR post discharge At least 5 days overlap therapy as Inpatient No Meds if any: Prescribed or Continued at Discharge Note: Overlap Therapy is Warfarin and Anticoagulant Meds if any: NOT Prescribed or Continued at Discharge
[2017-08-10 08:53] VITALS: BP 122/68
--- NOTE | 2017-08-10 16:08 | Surgical Discharge Summary ---
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 Japanese ETOH Use: denies use Review of Systems: See preoperative H&P Hospital Course Course Attending Physician: Tray Penaloza MD Primary Care Physician: John Golden MD Hospital Course: Patient was admitted to the surgical service for medical management of enteritis versus SBO. Following day his x-rays worsened pain was unresolved. He had no bowel function. He was taken to the OR for exploration. Please see operative dictation for details. There was obstructing cecal mass and right hemicolectomy performed. His postop course was unremarkable. He had return of bowel function on postop day 3 and diet was advanced. Allergies: Coded Allergies: No Known Allergies (08/04/17) Significant Procedures: Right hemicolectomy Core needle biopsy of the liver Disposition Summary Disposition Principal Diagnosis: Obstructing right colon cancer Additional Diagnosis: Liver mass concerning for metastases Discharge Disposition: home or self care Discharge Instructions General Discharge Information Code Status: Full Code Patient's Diet: Regular low residual Patient's Activity: No lifting greater than 20 pounds Follow-Up Instructions/Appts: 2 weeks for staple removal Medications at Discharge Discharge Medications: Continue taking these medications: Pravastatin Sodium (Pravastatin Sodium) 40 MG TABLET 1 Tablet ORAL DAILY Qty = 90 Comments: NOT GIVEN IN HOSPITAL Levothyroxine Sodium (Levothyroxine Sodium) 75 MCG TABLET 1 Tablet ORAL DAILY BEFORE BREAKFAST Qty = 90 Comments: Last Taken: 08/10/17 Time: 0600 AM Lisinopril (Lisinopril) 20 MG TABLET 1 Tablet ORAL DAILY Qty = 90 Comments: Last Taken: 08/10/17 Time: 0900 AM Aspirin (Aspirin*) 81 MG TAB.CHEW 1 Tablet ORAL DAILY Comments: Last Taken: 08/10/17 Time: 0900 AM Start taking the following new medications: Oxycodone HCl/Acetaminophen (Percocet 5-325 MG Tablet) 5 MG-325 MG TABLET 1-2 Tablet ORAL EVERY 4 HOURS NEEDED as needed for PAIN Qty = 30 No Refills Comments: Last Taken: 08/10/17 Time: 1:00 PM Copies To: Chantel RIVAS,[place]; Chantel RIVAS,John Castellon
== END 2017-08-10 13:30 | DRG 331 ==
LOC: ERH 10:27 → 2NB 18:37 → ERHI 18:37 → ENRESERV 19:26 → 2NB 20:21 → ERHI 20:37 → ENTRNSPT 21:30 → EDTRNSPTSTS 21:45 → EDTRNSPT 21:45 → 2NB 21:59 → CMPTRNSPT 21:59 → 2NB 22:08 → ENTRNSPT 08-05 22:24 → EDTRNSPT 08-05 22:30 → EDTRNSPTSTS 08-05 22:35 → EDTRNSPTTM 08-05 22:35 → CMPTRNSPT 08-05 22:43 → ENPENDDIS 08-10 12:44 → 2NB 08-10 13:30
PROVIDERS: Emergency Medicine; Physician Assistant; Physician Assistant Surgical
PROC: 0FB03ZX Excision of Liver, Percutaneous Approach, Diagnostic (ICD-10-PCS; principal; 2017-08-05)
PROC: 0DTF0ZZ Resection of Right Large Intestine, Open Approach (ICD-10-PCS; principal; 2017-08-05)
DX: K56.601 Complete intestinal obstruction, unspecified as to cause (principal); E03.9 Hypothyroidism, unspecified; E78.5 Hyperlipidemia, unspecified; I10 Essential (primary) hypertension; Z79.82 Long term (current) use of aspirin; F17.210 Nicotine dependence, cigarettes, uncomplicated
CPT/HCPCS: 2NBSP; 36415; 36592; 74018; 74177; 81003; 82436; 82652; 87086; 88307; 88309; 96361; 96374; 96375; 96376; 99291; J0131; J1100; J1644; J1885; J2405; J3490; J7042; J7120

== ENCOUNTER → 2017-09-16 | Day surgery (SDC) | payer OTHER ==
[~2017-09-16] VITALS: Ht 177.8 cm; Wt 63.5 kg
[~2017-09-16] MED LIST: ASPIRIN81 M4 PO; LEVOTHYROXINE75 MCG PO; LISINOPRIL20 M1 PO; PERCOCET 5-3251 EACH PO; PRAVASTATIN SOD40 M2 PO
--- NOTE | 2017-09-16 14:13 | Operative Report ---
Operative/Inv Procedure Report Surgery Date: 09/16/17 Name of Procedure: Left axillary vein Port-A-Cath placement using ultrasound and fluoroscopic guidance Pre-Operative Diagnosis: Colon cancer Post-Operative Diagnosis: Same Estimated Blood Loss: scant Surgeon/[place]: Tremaine RIVAS,Tray Soto Anesthesia: local monitored anesthesi Implants: [employer] Operative/Procedure Note Note: Patient brought to the operating room and laid supine. His arm tucked and a roll placed behind the shoulder. His left chest and neck were then prepped and draped. He was sedated. Using ultrasound imaging the left axillary vein was visualized and percutaneously accessed after local anesthesia placed. A wire was placed on the right atrium. Confirmation with fluoroscopic imaging was performed. The left chest was then infiltrated further with local anesthesia an incision made over the wire. An inferiorly based pocket was created with blunt and cautery dissection. The port was placed into the pocket and the catheter measured under fluoroscopic imaging. It was trimmed to 26 cm. Using fluoroscopy the dilator was placed down into the SVC. The wire was removed and passed off the field. The catheter was placed through the peel-away sheath. Sheath was then removed. Final fluoroscopic images show the catheter in the atrial SVC junction. The catheter was aspirated and flushed with concentrated heparin. The port was anchored to the deep subcutaneous tissues tissues with 0 Vicryl suture. The skin was closed with 3-0 and 4-0 Vicryl. Steri-Strips and sterile dressing applied. Sponge and needle counts are correct. CC: Chantel RIVAS,John Castellon; Jennifer RIVAS,[facility]
--- NOTE | 2017-09-16 14:50 | RADIOLOGY REPORT ---
EXAMINATION: XR PORTABLE CHEST CLINICAL INFORMATION: Evaluate for pneumothorax after left chest Port-A-Cath placement COMPARISON: CXR from 07/05/2017. TECHNIQUE: Portable frontal view of the chest was obtained. FINDINGS: Lungs are well expanded and clear. No acute pulmonary edema, consolidation, pneumothorax or pleural effusion. Cardiac silhouette is normal in size. Hilar contours are normal. Left chest wall medication port with central catheter extending into the distal superior vena cava. The visualized bones are normal. IMPRESSION: No evidence of pneumothorax after Port-A-Cath placement. No acute pulmonary disease.
--- NOTE | 2017-09-17 18:13 | RADIOLOGY REPORT ---
EXAMINATION:\H\ \N\XR CHEST CLINICAL INFORMATION: Port-A-Cath insertion and operating room, left-sided access. COMPARISON: Same day chest radiography. TECHNIQUE: Single intraoperative image of the chest was obtained under the supervision of Dr. Penaloza. Total fluoroscopic time 16 seconds. FINDINGS/IMPRESSION: Intraprocedural image demonstrates a radiodense clamp projecting over the mediastinum. A central venous catheter is partially visualized, terminating over the lower SVC. No acute complication demonstrated. Please refer to Dr. Penaloza's procedural note.
== END ==
LOC: STS 01:43
DX: C18.9 Malignant neoplasm of colon, unspecified (principal); I10 Essential (primary) hypertension; E03.9 Hypothyroidism, unspecified; F17.200 Nicotine dependence, unspecified, uncomplicated
CPT/HCPCS: 71045; C1788; J0690; J1644; J2250; J3490